=== PATIENT | male | born 1960 | race Caucasian/White ===

== ENCOUNTER 2023-02-02 14:58 | Emergency (ER) | payer OTHER, SELFPAY ==
[2023-02-02 15:07] VITALS: BP 229/142; PULSE 115; RESP 16; TEMP 36.7; O2SAT 99; BMI 30.4
--- NOTE | 2023-02-02 15:08 | ED_ITS ---
HPI - General Adult General Chief complaint: General Medical Stated complaint: gen med Time Seen by Provider: 02/02/23 16:25 Source: patient Limitations: no limitations History of Present Illness HPI narrative: 62-year-old male with history of hypertension presents with wooziness. Patient reports a 2 month history of not being able to get his blood pressure medications refilled. He is not quite sure the reasoning behind the. He has n ot seen his primary care doctor her from the primary care provider and quite some time. He has attempted to contact them as well as the pharmacist but they are unable to refill. Patient has not been having any chest pain, shortness breath palpitations. He has however been having some episodes lightheadedness. Symptoms can be severe. They are intermittent. There is no clear relieving or exacerbating features. He had 1 episode today which seemed to be more severe than usual which is white presents the emergency department. He also presents with a lot of anxiety and stress. 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 His sister is present with him today. Related Data Previous Rx's Medication Instructions Recorded amlodipine 5 mg tablet 5 mg PO DAILY #30 tabs 02/02/23 hydroxyzine HCl 25 mg tablet 25 mg PO QID PRN anxiety #20 tabs 02/02/23 tamsulosin 0.4 mg capsule 0.4 mg PO DAILY #30 caps 02/02/23 Allergies Allergy/AdvReac Type Severity Reaction Status Date / Time No Known Allergies Allergy Verified 02/02/23 15:12 Review of Systems Review of Systems: CONSTITUTIONAL: Denies weight loss, fever and chills. HEENT: Denies changes in vision and hearing. RESPIRATORY: Denies SOB and cough. CV: Denies palpitations no CP. GI: Denies abdominal pain, nausea, vomiting and diarrhea. : Denies dysuria and urinary frequency. MSK: Denies myalgia and joint pain. SKIN: Denies rash and pruritus. NEUROLOGICAL: Denies headache and syncope. PSYCHIATRIC: Denies recent changes in mood. Denies anxiety and depression. All other ROS are negative unless in HPI PMF Social History Social History Advance Directives: No Advance Directives Information Provided: No Physical Exam ED Vital Signs: Vital Signs - 24 hr 02/02/23 15:07 09/01/23 15:47 02/02/23 16:35 Temperature 98.1 F 97.7 F Pulse Rate 115 H 99 80 Respiratory Rate 16 18 18 Blood Pressure 229/142 H 235/127 H 182/117 H Pulse Oximetry 99 98 96 Oxygen Delivery Method Room Air Room Air Room Air 02/02/23 17:00 02/02/23 17:20 Temperature Pulse Rate 82 83 Respiratory Rate 20 Blood Pressure 203/121 H 188/104 H Pulse Oximetry 95 96 Oxygen Delivery Method Room Air Room Air BMI result Body Mass Index 30.4 GEN: Well developed, no acute distress, alert, oriented HEENT: Normocephalic, atraumatic, normal external ears, nose appears normal, no oropharyngeal edema or exudates Eyes: Normal to appearance Neck: Supple, no lymphadenopathy Respiratory: Talks in complete sentences, no respiratory distress, clear to auscultation bilaterally Cardiovascular: Regular rate and rhythm, no murmurs rubs or gallops Abdomen: Soft, nontender, nondistended, no guarding, no rebound Back: No CVA tenderness Extremities: No clubbing cyanosis or edema Neurologic: No focal neurologic deficits, cranial nerves 2-12 intact, strength is 5/5 bilaterally Skin: No rash Course Course Course Narrative: This is an RME: Additional HPI, ROS, PE not included below will be deferred to primary provider. This is a [id number]-male, with a hx of hypertension, presenting to the ER with complaints of two episodes of presyncope today. He states that while he was working in his bathroom he felt lightheaded and dizzy. Pt states that he has been without his blood pressure medication (amlodipine 5mg QD), for 1 month. Has been having difficulty filling HTN meds. BP 229/142. He has no CP/SOB. Plan: Labs, EKG, UA. Advised charged to bring pt back to main due to elevated blood pressure and presyncopal episodes. Reevaluation(s) Reevaluation #1: Blood pressure is currently 175/101 this represents about a 20% drop in blood pressure. I do not believe lowering his blood pressure be beneficial at this time. I have recommended close follow-up with his primary care provider. Patient also describes to BPH related symptoms. Will prescribe tamsulosin that. I will prescribe him is amlodipine. And hydroxyzine for anxiety. Time: 18:22 Medications Administered Discontinued Medications Generic Name Dose Route Start Last Admin Trade Name Karsten PRN Reason Stop Dose Admin Amlodipine Besylate 5 mg 02/02/23 16:48 02/02/23 17:00 Amlodipine Besylate 5 Mg Tablet PO 02/02/23 16:49 5 mg ONCE ONE Administration Protocol Hydroxyzine HCl 25 mg 02/02/23 16:48 02/02/23 17:00 Hydroxyzine Hcl 25 Mg Tablet PO 02/02/23 16:49 25 mg ONCE ONE Administration Medical Decision Making Medical Decision Making [facility] Narrative: 60-year-old male presents with hypertensive urgency, wooziness. Examination is benign. EKG does show some evidence of LVH. He has not been having any chest pain. At this point, will check routine laboratory analysis to make sure he does not have any significant renal dysfunction. Will treat his hypertensive urgency. Our goal be approximately 10-20% reduction in his systolic and diastolic pressure. If this is achieved, will prescribe one-month supply this blood pressure medication in order to get him to a follow-up with his primary care doctor to make any additional medications adjustments. In addition, we discussed dietary salt restriction, life modifications, etc.. I suspect patient likely be able to be discharged however, if his blood pressure remains significantly elevated despite aggressive intervention, patient may warrant hospitalization. Differential diagnosis includes hypertensive urgency, essential hypertension, medication noncompliance, anxiety, stress. Differential Diagnosis Differential Diagnoses: The differential diagnosis associated with the presentation includes (See above) Admission/Observation Consideration of admission/observation: Escalation of care including admission/observation considered Lab Data [facility] Lab Attestation statement: I reviewed the patient's lab results. 02/02/23 15:59 02/02/23 15:59 Labs: Lab Results 02/02/23 02/02/23 02/02/23 Range/Units 15:59 15:59 15:59 WBC 7.0 (4.8-10.8) X10*3/uL RBC 5.22 (4.60-5.80) X10*6/uL Hgb 16.9 (14.0-18.0) g/dl Hct 48.3 (42.0-52.0) % MCV 92.5 (80.0-98.0) fL MCH 32.4 (27.0-33.0) pg MCHC 35.0 (31.0-36.0) g/dl RDW 12.0 (11.0-16.0) % Plt Count 204 (160-400) X10*3/uL MPV 11.3 (9.4-12.4) fL Immature Gran % (Auto) 0.1 (0.0-0.4) % Neut % (Auto) 66.6 (45-73) % Lymph % (Auto) 24.2 (20-40) % [place] % (Auto) 7.5 (2-11) % Eos % (Auto) 1.3 (0-4) % Baso % (Auto) 0.3 (0-2) % Lymph # (Auto) 1.7 (1.2-4.9) X10*3/uL [place] # (Auto) 0.5 (0.1-1.2) X10*3/uL Eos # (Auto) 0.1 (0.0-0.4) X10*3/uL Baso # (Auto) 0.0 (0.0-0.2) X10*3/uL Abs Immat Gran (auto) 0.01 (0.00-0.03) X10*3/uL Absolute Neuts (auto) 4.7 (2.0-8.3) x10*3/uL Absolute Nucleated RBC 0.000 (0.0-0.012) X10*3/uL Nucleated RBC % (auto) 0.0 (0.0-0.2) /100WBC Sodium 141 (135-145) mmol/L Potassium 3.7 (3.3-5.1) mmol/L Chloride 108 (96-108) mmol/L Carbon Dioxide 21 L (22-29) mmol/L Anion Gap 16 (12-20) BUN 12 (9-16) mg/dL Creatinine 0.91 (0.5-1.4) mg/dL Estim Creat Clear Calc 115.9 Estimated GFR > 60 Random Glucose 126 H (60-115) mg/dL Calcium 9.6 (8.4-10.2) mg/dL Total Bilirubin 1.7 H (0.0-1.0) mg/dL Direct Bilirubin 0.5 (0.0-0.5) mg/dL AST 20 (5-37) U/L ALT 24 (0-40) U/L Alkaline Phosphatase 71 (39-117) U/L Troponin I High Sens 15.1 (<3.5-35.0) ng/L Total Protein 7.2 (6.5-8.0) g/dL Albumin 4.3 (3.5-5.0) g/dL Urine Color Urine Appearance Urine pH (5.0-9.0) Ur Specific [place] (1.005-1.025) Urine Protein (Neg-Trace) mg/dL Urine Glucose (UA) (Negative) mg/dL Urine Ketones (Negative) mg/dL Urine Blood (Negative) Urine Nitrite (Negative) Ur Leukocyte Esterase (Negative) 02/02/23 Range/Units 17:05 WBC (4.8-10.8) X10*3/uL RBC (4.60-5.80) X10*6/uL Hgb (14.0-18.0) g/dl Hct (42.0-52.0) % MCV (80.0-98.0) fL MCH (27.0-33.0) pg MCHC (31.0-36.0) g/dl RDW (11.0-16.0) % Plt Count (160-400) X10*3/uL MPV (9.4-12.4) fL Immature Gran % (Auto) (0.0-0.4) % Neut % (Auto) (45-73) % Lymph % (Auto) (20-40) % [place] % (Auto) (2-11) % Eos % (Auto) (0-4) % Baso % (Auto) (0-2) % Lymph # (Auto) (1.2-4.9) X10*3/uL [place] # (Auto) (0.1-1.2) X10*3/uL Eos # (Auto) (0.0-0.4) X10*3/uL Baso # (Auto) (0.0-0.2) X10*3/uL Abs Immat Gran (auto) (0.00-0.03) X10*3/uL Absolute Neuts (auto) (2.0-8.3) x10*3/uL Absolute Nucleated RBC (0.0-0.012) X10*3/uL Nucleated RBC % (auto) (0.0-0.2) /100WBC Sodium (135-145) mmol/L Potassium (3.3-5.1) mmol/L Chloride (96-108) mmol/L Carbon Dioxide (22-29) mmol/L Anion Gap (12-20) BUN (9-16) mg/dL Creatinine (0.5-1.4) mg/dL Estim Creat Clear Calc Estimated GFR Random Glucose (60-115) mg/dL Calcium (8.4-10.2) mg/dL Total Bilirubin (0.0-1.0) mg/dL Direct Bilirubin (0.0-0.5) mg/dL AST (5-37) U/L ALT (0-40) U/L Alkaline Phosphatase (39-117) U/L Troponin I High Sens (<3.5-35.0) ng/L Total Protein (6.5-8.0) g/dL Albumin (3.5-5.0) g/dL Urine Color Yellow Urine Appearance Clear Urine pH 6.0 (5.0-9.0) Ur Specific [place] 1.020 (1.005-1.025) Urine Protein Negative (Neg-Trace) mg/dL Urine Glucose (UA) Negative (Negative) mg/dL Urine Ketones Negative (Negative) mg/dL Urine Blood Negative (Negative) Urine Nitrite Negative (Negative) Ur Leukocyte Esterase Negative (Negative) Independent Interpretation I performed an independent interpretation of an: EKG (Normal sinus rhythm heart rate 96, PACs, Q-wave in lead 3 and a small wanting AVF possible old inferior wall [place], no acute ST elevations depressions, possible LVH criteria) Prescription Management I considered prescription management with: Other (Antihypertensives, anxiety medications) Chronic Conditions Patient?s care impacted by: Hypertension Discharge Plan Discharge Clinical Impression: Hypertensive urgency, Anxiety, Benign prostatic hyperplasia Patient Disposition: Home, Self-Care Instructions: Generalized Anxiety Disorder (ED), DASH Eating Plan (ED), Hypertensive Crisis (ED) Prescriptions: New tamsulosin 0.4 mg capsule 0.4 mg PO DAILY Qty: 30 0RF amlodipine 5 mg tablet 5 mg PO DAILY Qty: 30 0RF hydroxyzine HCl 25 mg tablet 25 mg PO QID PRN (Reason: anxiety) Qty: 20 0RF Referrals: [facility] [Provider Group] [facility] [place] [facility] [Provider Group]
--- NOTE | 2023-02-02 15:13 | ECG_ITS ---
Test Reason : HTN Blood Pressure : / mmHG Vent. Rate : 096 BPM Atrial Rate : 096 BPM P-R Int : 164 ms QRS Dur : 096 ms QT Int : 360 ms P-R-T Axes : 058 009 029 degrees QTc Int : 454 ms Sinus rhythm with Premature supraventricular complexes Inferior infarct , age undetermined Abnormal ECG When compared with ECG of 25-FEB-2017 10:57, Premature supraventricular complexes are now Present Referred By: Deepali Gonzalez Electronically Signed By:MIKE MELARA
[2023-02-02 15:47] VITALS: BP 235/127; PULSE 99; RESP 18; TEMP 36.5; O2SAT 98
[2023-02-02 16:06] LABS: MANUAL DIFF FLAG NO
[2023-02-02 16:10] LABS: Basophils Percent Auto 0.3 % (0-2); Eosinophils Absolute Auto 0.1 X10*3/uL (0.0-0.4); Eosinophils Percent Auto 1.3 % (0-4); Hematocrit 48.3 % (42.0-52.0); Hemoglobin 16.9 g/dl (14.0-18.0); Imm Gran Abs Auto 0.01 X10*3/uL (0.00-0.03); Imm Gran Pct Auto 0.1 % (0.0-0.4); Lymphocytes Absolute Auto 1.7 X10*3/uL (1.2-4.9); Lymphocytes Percent Auto 24.2 % (20-40); Mean Corpuscular Hemoglobin 32.4 pg (27.0-33.0); Mean Corpuscular Volume 92.5 fL (80.0-98.0); Mean Platelet Volume 11.3 fL (9.4-12.4); Monocytes Absolute Auto 0.5 X10*3/uL (0.1-1.2); Monocytes Percent Auto 7.5 % (2-11); Neutrophils Absolute Auto 4.7 x10*3/uL (2.0-8.3); Neutrophils Percent Auto 66.6 % (45-73); Platelet Count 204 X10*3/uL (160-400); Red Blood Count 5.22 X10*6/uL (4.60-5.80)
[2023-02-02 16:35] VITALS: BP 182/117; PULSE 80; RESP 18; O2SAT 96
[2023-02-02 16:36] LABS: Alanine Aminotransferase 24 U/L (0-40); Albumin Level 4.3 g/dL (3.5-5.0); Alkaline Phosphatase 71 U/L (39-117); Anion Gap 16 (12-20); Aspartate Amino Transferase 20 U/L (5-37); Bilirubin Direct 0.5 mg/dL (0.0-0.5); Bilirubin Total 1.7 mg/dL (0.0-1.0); Blood Urea Nitrogen 12 mg/dL (9-16); Calcium 9.6 mg/dL (8.4-10.2); Carbon Dioxide 21 mmol/L (22-29); Chloride 108 mmol/L (96-108); Creatinine Clr Calc Pharmacy 115.9; Estimated Glomerular Filt Rate > 60; Glucose Random 126 mg/dL (60-115); Potassium 3.7 mmol/L (3.3-5.1); Sodium 141 mmol/L (135-145); Total Protein 7.2 g/dL (6.5-8.0)
[2023-02-02 16:43] LABS: Troponin-I High Sensitivity 15.1 ng/L (<3.5-35.0)
[2023-02-02 17:00] VITALS: BP 203/121; PULSE 82; RESP 20; O2SAT 95
[2023-02-02] MEDS: amLODIPine Besylate 5 MG TABLET PO (17:00)
[2023-02-02] MEDS: hydrOXYzine HCL 25 MG TABLET PO (17:00)
--- NOTE | 2023-02-02 17:06 | PC.NURSE ---
Pt A & Ox3. Sister at bedside. Resting quietly. Last BP of 203/121. PO meds given as ordered. Denies SOB/Chest Pain/BARLOW. No apparent distress.
[2023-02-02 17:19] LABS: Appearance Urine Clear; Color Urine Yellow; Glucose Urine UA Negative (Negative); Leukocyte Esterase Urine Negative (Negative); Nitrite Urine Negative (Negative); Urine Blood Negative (Negative); Urine Ketones Negative (Negative); Urine Protein Negative (Neg-Trace)
[2023-02-02 17:20] VITALS: BP 188/104; PULSE 83; O2SAT 96
[2023-02-02 18:49] VITALS: BP 176/99; PULSE 79
== END 2023-02-02 18:52 | disposition home or self-care (01) ==
PROVIDERS: Physician Assistant Medical; Emergency Provider Emergency Medicine
DX: I16.0 Hypertensive urgency (principal); R94.31 Abnormal electrocardiogram [ECG] [EKG]; F41.9 Anxiety disorder, unspecified; N40.0 Benign prostatic hyperplasia without lower urinary tract symptoms; I10 Essential (primary) hypertension; Z79.899 Other long term (current) drug therapy
CPT/HCPCS: 36415; 80048; 80076; 81003; 84484; 85025; 93005; 99283; 99284

== ENCOUNTER 2023-02-11 12:02 | Emergency (ER) | payer OTHER, SELFPAY ==
[2023-02-11] VITALS (8 sets, daily range): BP systolic 153–218; BP diastolic 86–129; PULSE 77–110; RESP 14–24; TEMP 36.6–36.7; O2SAT 96–98; BMI 31.9
--- NOTE | ~2023-02-11 | CT_ITS ---
EXAMINATION: CT head/brain wo IV con CLINICAL INFORMATION: Reason for Exam Presyncope, hypertensive COMPARISON: None. TECHNIQUE: Contiguous axial imaging was performed from the skull base to vertex without intravenous contrast. Sagittal and coronal reformatted images were obtained. This CT examination was performed using dose optimization techniques as appropriate, variously including the following: * Automated exposure control * Adjustment of mA and/or kV according to patient size (this includes techniques or standardized protocols for targeted exams where dose is matched to indication/reason for exam; i.e. extremities or head) Use of iterative reconstruction technique DLP: 924.34 mGy-cm FINDINGS: No acute osseous or soft tissue abnormality. Mild patchy paranasal sinus mucosal thickening. Mastoid air cells are clear. There is no evidence of acute intracranial hemorrhage or territorial infarction. No abnormal mass effect or midline shift is seen. Vigil to white matter differentiation is well preserved. No extra-axial fluid collections are identified. No hydrocephalus. CT/CT head/brain wo IV con IMPRESSION: 1. No acute intracranial abnormality.
--- NOTE | 2023-02-11 12:24 | ED.DIZZY ---
HPI - Dizziness General Chief Complaint: General Medical Stated Complaint: seen last week/ dizzy spells Time Seen by Provider: 02/11/23 13:30 Source: patient Mode of arrival: ambulatory Limitations: no limitations History of Present Illness HPI Narrative: 62-year-old male with PMHx of HTN and BPH presents to the ED today with a complaint of dizziness worsening since he was evaluated in the ED 9 days ago. Reports a presyncopal episode consisting of severe dizziness, diaphoresis, head pressure 3 hours ago. States the symptoms are similar to previous however the are more severe and lasted longer. Reports taking 5 mg of amlodipine this morning prior to the episode. States the episode lasted about 5 minutes before resolving. Denies vision changes, chest pain, SOB, hemoptysis, lower extremity edema/swelling, tingling/weakness/numbness of the extremities. Related Data Previous Rx's Medication Instructions Recorded amlodipine 5 mg tablet 5 mg PO DAILY #30 tabs 02/02/23 hydroxyzine HCl 25 mg tablet 25 mg PO QID PRN anxiety #20 tabs 02/02/23 tamsulosin 0.4 mg capsule 0.4 mg PO DAILY #30 caps 02/02/23 amlodipine 5 mg tablet 5 mg PO DAILY 30 days #30 tabs 02/11/23 Allergies Allergy/AdvReac Type Severity Reaction Status Date / Time No Known Allergies Allergy Verified 02/11/23 12:24 Review of Systems Review of Systems: Constitutional: No fever, No chills, + fatigue, No malaise ENT/Mouth: No ear pain, No hearing loss, No nasal congestion, No sinus pain, No rhinorrhea, No sore throat Eyes: No eye pain, No swelling, No redness, No vision changes, No foreign body, No discharge Cardio: No chest pain, No palpitations, No dyspnea on exertion, No orthopnea, No edema Respiratory: No SOB, No cough, No sputum, No wheezing, No dyspnea, No hemoptysis GI: No nausea, No vomiting, No hematemesis, No abdominal pain, No diarrhea, No constipation, No hematochezia, No melena : No irregular bleeding, No dysuria, No frequency, No urgency, No hesitancy, No hematuria, No flank pain, No urinary flow changes, No urinary incontinence or retention MSK: No back pain, No neck pain, No joint pain, No myalgias Skin: No skin lesions, No rashes Neuro: No weakness, No numbness, No paresthesias, No LOC, + dizziness, + headache Psych: No anxiety/panic, No depression, No SI/HI, No AH/VH Yes all other systems are reviewed and are negative [facility] Past Medical History Attestation statement: The following information was validated with the patient. Source: old records reviewed and nursing notes reviewed Social History Social History Smoked in Last 30 Days: No Use of substances other than those prescribed or required for medical reasons: No Advance Directives: No Physical Exam Vital Signs: Vital Signs: Last Vital Signs Temp 98.0 F 02/11/23 16:01 Pulse 77 02/11/23 16:01 Resp 24 H 02/11/23 16:01 BP 162/87 H 02/11/23 16:01 Pulse Ox 96 02/11/23 16:01 O2 Del Method Room Air 02/11/23 16:01 BMI result Body Mass Index 31.9 Patient hypertensive to 218/129 General: Nontoxic appearing. NAD Skin: Warm and dry. No rashes or lesions. Head: Normocephalic, atraumatic. EENT: EAC patent. Hearing is intact b/l. Conjunctiva clear. Sclera is anicteric. PERRLA. EOM intact. Moist mucous membranes Neck: Supple without LAD. Normal ROM. Trachea midline. Cardiac: Chest wall symmetric. RRR. S1 and S1 appreciated. No MRG. No JVD. Lungs: CTA bilaterally. No rales, rhonchi, or wheezes. Normal respiratory effort without accessory muscle use. Abdomen: No visible lesions or scars. Soft, non-tender, non-distended. No rebound tenderness or guarding. Normoactive BS x4. Spine: No midline spinous tenderness. No deformity or step off. Ext: Upper and lower extremities atraumatic. Full ROM throughout.Capillary refill <2 seconds in all extremities. Pulses 2+ equal b/l. No edema, cyanosis, or clubbing. Neuro: Alert and oriented x3. Normal speech. CN 2-12 grossly intact. Strength 5/5 intact throughout. Sensation intact to light touch. Neurovascular intact distally. Reflexes 2+ bilaterally. Normal finger to nose, heel to tucker. Ambulating with steady gait. Psych: Appropriate mood and affect. Responds appropriately to questions. Course Course Course Narrative: This is an RME: Additional HPI, ROS, PE not included below will be deferred to primary provider. Patient is a 62-year-old male presents emergency department for evaluation of a dizziness episode this morning. He reports he was seen here in the emergency department last week with similar symptoms. He reports that around 10:15 this morning he had intense dizziness, near syncopal episode, significant head pressure, diaphoresis. This episode is similar to the dizziness he was experiencing previously but he states that it lasted longer, and was much more severe. At this time he states feeling significantly tired ?like I have been hit by a train . Noted to be hypertensive at this time 214/128. He reports compliance with his amlodipine since provided with prescription for 9 days ago in the emergency department. Plan: labs, EKG, spoke with charge coordinator; advised to bring patient back to main ED given hypertension, with presyncope and diaphoresis Reevaluation(s) Reevaluation #1: 1400--patient's bp 213/120 in triage s/p home amlodipine > 2nd dose of amlodipine 5mg given, will re-evaluate bp. 1412-- EKG with NSR, rate of 79 BPM, no acute ischemic changes. CBC without leukocytosis or anemia. No acute electrolyte abnormalities requiring intervention. BNP WNL. Troponin x1 negative, will obtain repeat > unlikely ASC. COVID negative. CT head/brain pending. > repeat bp prior to amlodipine is noted to be 194/109 in the left arm and 175/94 and the right arm > low suspicion for dissection. Awaiting orthostatic vital signs. 1515-- On re-evaluating, pt stating he feels better. I measured the patient's blood pressure myself all in the room neck read 145/94 > blood pressure improving after amlodipine administration. Patient noted to be tachycardic to 110 > D-dimer ordered to rule out VTE. Pt no longer tachycardic. > orthostatic vitals negative. Postural tachycardia noted > 78 bpm supine, 97 bpm sitting, 110 standing > IVF ordered. 1533-- CT head/brain unremarkable > discussed results with partient. D-dimer and repeat trop pending. If both return negative I feel safe to discharge pt home. Patient to increase amlodipine 10 mg daily with close follow-up with PCP. Will also give patient cardiology referral to establish care. Discussed worrisome signs and symptoms with the patient and return precautions. Used shared decision making to determine disposition. Patient agreeable with plan. Will plan to re-evaluate after IVF, pending labs, and discharge the patient home on 10 mg amlodipine. 1611--Patient placed in physician observation at 4:11 pm. Pending IVF, ddimer, repeat trop. 1641-- UA negative for infection. D dimer negative. Repeat trop pending. Signed out to my colleague Mindy BARNETT. Medications Administered Discontinued Medications Generic Name Dose Route Start Last Admin Trade Name Freq PRN Reason Stop Dose Admin Amlodipine Besylate 5 mg 02/11/23 13:48 02/11/23 14:01 Amlodipine Besylate 5 Mg Tablet PO 02/11/23 13:49 5 mg ONCE ONE Administration Protocol Sodium Chloride 1,000 mls @ 999 mls/hr 02/11/23 16:00 02/11/23 20:08 Ns IV 02/11/23 17:00 Infused .Q1H1M ANGI Infusion Medical Decision Making Medical Decision Making [facility] Narrative: 62-year-old male with a history of HTN and BPH presents to the ED today with a complaint of dizziness worsening since being evaluated in the ED 9 days ago. Patient nontoxic appearing in no acute distress. Hypertensive to 218/129, vital signs otherwise WNL. RRR. Lungs CTA bilaterally. Cerebellum intact. Exam nonfocal. Clinical concern for HTN, hypertensive urgency, hypertensive emergency, orthostatic hypotension, vasovagal, vertigo, electrolyte abnormality, dehydration. Unlikely ACS, dissection, posterior stroke, CVA/TIA, PE. Plan: labs, imaging, IVF Differential Diagnosis Differential Diagnoses: The differential diagnosis associated with the presentation includes Clinical concern for HTN, hypertensive urgency, hypertensive emergency, orthostatic hypotension, vasovagal, vertigo, electrolyte abnormality, dehydration. Unlikely ACS, dissection, posterior stroke, CVA/TIA, PE. Lab Data [facility] Lab Attestation statement: I reviewed the patient's lab results. See above course narrative. 02/11/23 12:44 02/11/23 12:44 Labs: Lab Results 02/11/23 02/11/23 02/11/23 Range/Units 12:44 16:12 17:59 WBC 6.3 (4.8-10.8) X10*3/uL RBC 5.47 (4.60-5.80) X10*6/uL Hgb 17.5 (14.0-18.0) g/dl Hct 49.0 (42.0-52.0) % MCV 89.6 (80.0-98.0) fL MCH 32.0 (27.0-33.0) pg MCHC 35.7 (31.0-36.0) g/dl RDW 11.9 (11.0-16.0) % Plt Count 231 (160-400) X10*3/uL MPV 10.6 (9.4-12.4) fL Immature Gran % (Auto) 0.3 (0.0-0.4) % Neut % (Auto) 62.3 (45-73) % Lymph % (Auto) 27.7 (20-40) % [place] % (Auto) 8.4 (2-11) % Eos % (Auto) 1.1 (0-4) % Baso % (Auto) 0.2 (0-2) % Lymph # (Auto) 1.8 (1.2-4.9) X10*3/uL [place] # (Auto) 0.5 (0.1-1.2) X10*3/uL Eos # (Auto) 0.1 (0.0-0.4) X10*3/uL Baso # (Auto) 0.0 (0.0-0.2) X10*3/uL Abs Immat Gran (auto) 0.02 (0.00-0.03) X10*3/uL Absolute Neuts (auto) 3.9 (2.0-8.3) x10*3/uL Absolute Nucleated RBC 0.000 (0.0-0.012) X10*3/uL Nucleated RBC % (auto) 0.0 (0.0-0.2) /100WBC PT 11.7 (11.1-13.3) SEC INR 1.0 (0.9-1.1) D-Dimer High Sensitivty < 150 Cancelled NG/ML Sodium 139 (135-145) mmol/L Potassium 4.0 (3.3-5.1) mmol/L Chloride 108 (96-108) mmol/L Carbon Dioxide 21 L (22-29) mmol/L Anion Gap 14 (12-20) BUN 13 (9-16) mg/dL Creatinine 0.84 (0.5-1.4) mg/dL Estim Creat Clear Calc 128.5 Estimated GFR > 60 Random Glucose 97 (60-115) mg/dL Calcium 9.5 (8.4-10.2) mg/dL Magnesium 2.1 (1.6-2.6) mg/dL Total Bilirubin 2.3 H (0.0-1.0) mg/dL AST 20 (5-37) U/L ALT 20 (0-40) U/L Alkaline Phosphatase 76 (39-117) U/L Troponin I High Sens 13.7 < 2.7 D (<3.5-35.0) ng/L B-Natriuretic Peptide 18 (<100) pg/mL Total Protein 7.6 (6.5-8.0) g/dL Albumin 4.3 (3.5-5.0) g/dL Urine Color Yellow Urine Appearance Clear Urine pH 6.0 (5.0-9.0) Ur Specific [place] 1.020 (1.005-1.025) Urine Protein Negative (Neg-Trace) mg/dL Urine Glucose (UA) Negative (Negative) mg/dL Urine Ketones Negative (Negative) mg/dL Urine Blood Trace H (Negative) Urine Nitrite Negative (Negative) Ur Leukocyte Esterase Negative (Negative) Urine RBC 3-5 H (0-2) /HPF Urine WBC 0-5 (0-5) /HPF Ur Squamous Epith Cells 0-2 (0-2) /HPF Calcium Oxalate Crystal Present Urine Bacteria None Seen (None Seen) Hyaline Casts 0-2 (0-2) /LPF COVID-19 (CAROLYN) Negative (Negative) COVID-19 Clin Com See Note Independent Interpretation I performed an independent interpretation of an: EKG (Normal sinus rhythm with sinus arrhythmia, rate 79 BPM, old inferior infarct, no acute ischemic changes) and CT Scan Interpretation: CT head/ brain without intracranial pathology, agree with radiologist's interpretation. Radiology Impression Discussion of test interpretation with radiology: I have reviewed the radiologist's reading. Radiologist Impression: CT head/brain wo IV con IMPRESSION: No acute intracranial abnormality. Independent Historian Clinical information obtained from an independent historian. History obtained from or confirmed by: Spouse External Record Review External record reviewed: Inpatient record Prescription Management I considered prescription management with: Other (Antihypertensive) Chronic Conditions Patient?s care impacted by: Hypertension Discharge Plan Discharge Clinical Impression: Hypertension Patient Disposition: Home, Self-Care Instructions: Low-Sodium Diet (ED), Hypertension (ED) Additional Instructions: Your lab workup today was unremarkable. Your heart enzymes were normal. CT of your head was normal. The symptoms you are experiencing are likely due to your high blood pressure. Please increase your dose of amlodipine to 10 mg daily. A new prescription has been sent to your pharmacy. He is prescribed Follow-up with your primary care provider for continued management of your high blood pressure. If you do not have 1 referral has been provided to you. Please call them to make an appointment. Although your cardiac workup was negative today, a referral for Cardiology has been provided to you. Please call them to make an appointment to establish care. Please return to the emergency department if your symptoms persist or worsen. Prescriptions: New amlodipine 5 mg tablet 5 mg PO DAILY 30 Days Qty: 30 0RF Rx Instructions: Patient recently prescribed 30 day supply of 5 mg amlodipine. Sending a 2nd script as patient's dose has been increased to 10 mg. No Action tamsulosin 0.4 mg capsule 0.4 mg PO DAILY Qty: 30 0RF amlodipine 5 mg tablet 5 mg PO DAILY Qty: 30 0RF hydroxyzine HCl 25 mg tablet 25 mg PO QID PRN (Reason: anxiety) Qty: 20 0RF [place]errals: [facility] [place]] [facility] [Provider Group] [facility] [place] [facility] [Provider Group] Interventions: ED Discharge Assessment Last Done: 02/11/23 20:18 Discharge Date/Time: 02/11/23 20:29
--- NOTE | 2023-02-11 12:28 | ECG_ITS ---
Test Reason : HTN Blood Pressure : / mmHG Vent. 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
[2023-02-11 12:50] LABS: MANUAL DIFF FLAG NO
[2023-02-11 12:51] LABS: Basophils Percent Auto 0.2 % (0-2); Eosinophils Absolute Auto 0.1 X10*3/uL (0.0-0.4); Eosinophils Percent Auto 1.1 % (0-4); Hemoglobin 17.5 g/dl (14.0-18.0); Imm Gran Abs Auto 0.02 X10*3/uL (0.00-0.03); Imm Gran Pct Auto 0.3 % (0.0-0.4); Lymphocytes Absolute Auto 1.8 X10*3/uL (1.2-4.9); Lymphocytes Percent Auto 27.7 % (20-40); Mean Corpuscular HGB Conc 35.7 g/dl (31.0-36.0); Mean Corpuscular Volume 89.6 fL (80.0-98.0); Mean Platelet Volume 10.6 fL (9.4-12.4); Monocytes Absolute Auto 0.5 X10*3/uL (0.1-1.2); Monocytes Percent Auto 8.4 % (2-11); Neutrophils Absolute Auto 3.9 x10*3/uL (2.0-8.3); Neutrophils Percent Auto 62.3 % (45-73); Platelet Count 231 X10*3/uL (160-400); Red Blood Count 5.47 X10*6/uL (4.60-5.80); Red Cell Distribution Width 11.9 % (11.0-16.0); White Blood Count 6.3 X10*3/uL (4.8-10.8)
[2023-02-11 13:05] LABS: Alanine Aminotransferase 20 U/L (0-40); Albumin Level 4.3 g/dL (3.5-5.0); Alkaline Phosphatase 76 U/L (39-117); Anion Gap 14 (12-20); Aspartate Amino Transferase 20 U/L (5-37); Bilirubin Total 2.3 mg/dL (0.0-1.0); Blood Urea Nitrogen 13 mg/dL (9-16); Calcium 9.5 mg/dL (8.4-10.2); Carbon Dioxide 21 mmol/L (22-29); Chloride 108 mmol/L (96-108); Creatinine Clr Calc Pharmacy 128.5; Estimated Glomerular Filt Rate > 60; Glucose Random 97 mg/dL (60-115); Magnesium 2.1 mg/dL (1.6-2.6); Sodium 139 mmol/L (135-145); Total Protein 7.6 g/dL (6.5-8.0)
[2023-02-11 13:08] LABS: Prothrombin Time 11.7 SEC (11.1-13.3)
[2023-02-11 13:10] LABS: COVID-19 Test Negative (Negative); IDNOW Serial# 6674DD1D
[2023-02-11 13:11] LABS: B Type Natriuretic Peptide 18 pg/mL (<100)
[2023-02-11 13:12] LABS: Troponin-I High Sensitivity 13.7 ng/L (<3.5-35.0)
[2023-02-11] MEDS: amLODIPine Besylate 5 MG TABLET PO (14:01)
[2023-02-11 16:25] LABS: Appearance Urine Clear; Color Urine Yellow; Glucose Urine UA Negative (Negative); Leukocyte Esterase Urine Negative (Negative); Nitrite Urine Negative (Negative); UMIC TRIGGER UACC YES; Urine Blood Trace (Negative); Urine Ketones Negative (Negative); Urine Protein Negative (Neg-Trace)
[2023-02-11 16:32] LABS: Bacteria Urine None Seen (None Seen); Calcium Oxalate Crystals Urine Present; Hyaline Casts Urine 0-2 /LPF (0-2); Squamous Epithelial Cell Urine 0-2 /HPF (0-2); WBC Urine 0-5 /HPF (0-5)
[2023-02-11 17:00] LABS: D Dimer High Sensitivity < 150 NG/ML
[2023-02-11] MEDS: 0.9 % Sodium Chloride 1,000 ML 999 ML IV (17:14)
[2023-02-11 18:33] LABS: Troponin-I High Sensitivity < 2.7 ng/L (<3.5-35.0)
== END 2023-02-11 20:29 | disposition home or self-care (01) ==
PROVIDERS: Nurse Practitioner Family; Physician Assistant; Physician Assistant Medical; Emergency Provider Emergency Medicine
DX: R42 Dizziness and giddiness (principal); I49.8 Other specified cardiac arrhythmias; R06.02 Shortness of breath; I10 Essential (primary) hypertension; Z20.822 Contact with and (suspected) exposure to COVID-19; Z20.828 Contact with and (suspected) exposure to other viral communicable diseases; Z79.899 Other long term (current) drug therapy
CPT/HCPCS: 36415; 70450; 80053; 81001; 83735; 83880; 84484; 85025; 85379; 85610; 87635; 93005; 99284; 99285

== ENCOUNTER 2023-02-23 13:43 | Outpatient (AMB) | payer OTHER, SELFPAY ==
[2023-02-23 13:59] VITALS: BP 148/98; PULSE 99; BMI 32.1
--- NOTE | 2023-02-23 13:59 | A.OFFVIS_ITS ---
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 He had been pressure medications for approximately 2 months due to inability to get refills. He was then started back on amlodipine and dose further increased to 10 mg daily. He was referred to Cardiology for further evaluation. Today he reports that he has not had any recurrent lightheaded, had pressure or chest discomfort episodes since his 2nd ER visit on 02/11/2023. He describes episodes of presyncope but no full syncope when his blood pressure was very high. He says he was diagnosed with high blood pressure about 3 years ago and had been maintained on amlodipine 5 mg daily. He ran out approximately 2 months ago and was not able to get a refill for unclear reason. Since starting back on medication he is feeling better. He reports having high stressors at home. He lives with his mother and helps to care for her. He describes her as being angry and yelling much of the time. He is on disability due to chronic abdominal issues. He describes having hernia repair surgery but has residual chronic pain and needing to be close to the bathroom . He does walk at [facility] and says he generally tolerates it well. He has no exertional chest discomfort, shortness of breath, palpitations. No PND, orthopnea or edema. He has never smoked. He does not drink alcohol. His father had heart disease and lung cancer. [facility] Medical History (Updated 02/23/23 @ 14:45 by EUGENIO Rodriguez) Hypertension Family History Sister Diabetes Social History Patient Tobacco Use Status: Never used Tobacco Review of Systems Const All systems reviewed & are unremarkable except as noted in HPI and below ENT Denies dizziness Card Denies chest pain, Denies chest pain at rest, Denies chest pain with activity, Denies rapid heart rate, Denies pedal edema, Denies edema, Denies leg edema, Denies lightheadedness, Denies palpitations, Denies dyspnea, Denies dyspnea on exertion and Denies orthopnea Resp Denies cough, Denies dyspnea and Denies dyspnea on exertion GI Details: chronic abdominal discomfort and GI issues Reports abdominal pain, Denies hematochezia and Denies change in stool character Musc Denies abnormal gait, Denies limited range of motion, Denies muscle cramps, Denies muscle weakness, Denies numbness, Denies radiating pain into limb, Denies stiffness and Denies tingling Neuro Denies abnormal gait, Denies dizziness, Denies numbness and Denies tingling Endo Denies palpitations Physical Exam Vital Signs: Last Vital Signs Pulse 99 02/23/23 13:59 BP 148/98 H 02/23/23 13:59 BMI result Body Mass Index 32.1 Const General: cooperative, healthy appearing, comfortable, no acute distress and anxious Orientation/consciousness: patient oriented x3 Neck Neck: Yes normal visual inspection Resp Effort & Inspection: normal respiratory effort Auscultation: clear to auscultation bilaterally, no crackles, no rales, no rhonchi and no wheezes Cardio Jugular venous distension: no JVD Rate: regular rate Rhythm: regular rhythm Heart sounds: S1 normal heart sound present, S2 normal heart sound present, no murmurs and no rubs Neuro General: patient oriented x3 Extrem General: Yes normal to inspection Psych Appearance: grossly normal Mental Status: mental status grossly normal Speech and movement: Normal speech and movement present Assessment & Plan Assessment & Plan (1) Uncontrolled hypertension: Code(s): I10 - Essential (primary) hypertension Plan: ER visit on 02/02/2023. He had not been taking blood pressure medication for 2 months. He had symptoms of presyncope, lightheaded, head pressure. Blood pressure 229/142. He was started back on amlodipine 5 mg daily and giving hydroxyzine for his anxiety. He said initially he was feeling well then had recurrent symptoms on 02/11/2023. That day he also felt some chest discomfort and diaphoretic. Blood pressure 214/128. CT scan of the head was normal. He was given additional dose of amlodipine and his dose was increased up to 10 mg daily. His troponin levels were normal, BNP 18, creatinine 0.84, potassium 4.0. EKG shows sinus rhythm with sinus arrhythmia, Q-wave inferiorly, rate seventy- nine. He was referred to Cardiology for follow-up. Today he reports that he has not had any significant symptoms since his last ER visit. He does not check his blood pressure at home. He has been compliant with his amlodipine. He does report high stressors at home and anxiety regarding his health. Initial blood pressure 148/98. Blood pressure when checked by me later in visit 162/96. Still not optimally controlled. Will start on lisinopril 10 mg daily. Low-salt diet reviewed. Will check echocardiogram to assess for structural heart disease. After 2 weeks will plan for a nuclear stress test to evaluate for ischemia. He if he has elevated blood pressure on the day of the stress test than a pharmacological stress test can be done. Patient informed of this and he is agreeable to this plan. Instructed on light physical activities until his blood pressure is well controlled. Stay stress reduction activities reviewed. Cardiology follow-up in 4-6 weeks, sooner if needed (2) Chest discomfort: Code(s): R07.89 - Other chest pain Plan: Chest discomfort at the time of his recent hypertensive urgency. He ruled out for ACS. No exertional chest discomfort reported. Nuclear stress test being done as above for further evaluation. (3) Dizziness: Code(s): R42 - Dizziness and giddiness Plan: With hypertensive urgency, no recurrent symptoms since that time (4) Anxiety about health: Code(s): F41.8 - Other specified anxiety disorders Plan: Discuss this with him. Informed that we will do a cardiac evaluation in order t o determine if his heart is okay and we will help to manage his blood pressure Orders: Orders CA echo transthoracic complete Today I10 - Essential (primary) hypertension, R07.89 - Other chest pain CA stress test 2 Weeks I10 - Essential (primary) hypertension, R07.89 - Other chest pain NM cardiolite stress test 2 Weeks I10 - Essential (primary) hypertension, R07.89 - Other chest pain Medications: New lisinopril 10 mg PO DAILY 30 tabs 2RF Coding Level of Care Code New Pt Level 4 (58000) Diagnoses Uncontrolled hypertension I10 Chest discomfort R07.89 Dizziness R42 Anxiety about health F41.8 Time Spent (min) 35
== END 2023-02-23 14:40 | disposition home or self-care (01) ==
PROVIDERS: PCP Internal Medicine; Visit Provider Nurse Practitioner Family
DX: I10 Essential (primary) hypertension (principal); R07.89 Other chest pain; R42 Dizziness and giddiness; F41.8 Other specified anxiety disorders
CPT/HCPCS: 99204

== ENCOUNTER → 2023-02-23 13:43 | Outpatient (BNVA) | payer OTHER, SELFPAY | PROVIDERS: PCP Internal Medicine; Visit Provider Nurse Practitioner Family ==